=== PATIENT | female | born 1985 | race African-American/Black ===

== ENCOUNTER 2018-06-28 01:04 | Emergency (ER) | payer MEDICAID ==
[~2018-06-28] VITALS: Ht 162.6 cm; Wt 63.5 kg
[2018-06-28 01:20] VITALS: BP 107/75
== END 2018-06-28 02:07 | disposition home or self-care (01) ==
LOC: ER 01:06
DX: M79.89 Other specified soft tissue disorders (principal); Z60.2 Problems related to living alone
CPT/HCPCS: Z7502